=== PATIENT | female | born 1990 | race Caucasian/White ===

== ENCOUNTER 2016-07-12 09:56 | Outpatient (CLI) | payer MEDICAID | END 2016-07-12 09:57 | disposition home or self-care (01) | DX: Z36 Encounter for antenatal screening of mother (principal) ==

== ENCOUNTER 2016-08-11 00:16 | Outpatient (CLI) | payer MEDICAID | END 2016-08-11 03:00 | disposition home or self-care (01) | DX: Z34.03 Encounter for supervision of normal first pregnancy, third trimester (principal) ==

== ENCOUNTER 2016-08-12 04:03 | Inpatient (IN) | payer MEDICAID ==
[2016-08-12] MEDS ORDERED: fentaNYL 100 MCG/2 ML VIAL IVP PRN (05:12)
[2016-08-12] MEDS ORDERED: ONDANSETRON 4 MG/2 ML VIAL IVP PRN (05:12)
[2016-08-12] MEDS: SODIUM CHLORIDE FLUSH 0.9% 10 ML SYRINGE IVP PRN ×2 (06:29→13:57)
[2016-08-12] MEDS: LACTATED RINGERS 1,000 ML IV SCH ×2 (06:29→09:58)
[2016-08-12] MEDS ORDERED: LIDOCAINE 1% 50 ML MDV ONE (12:31)
[2016-08-12] MEDS ORDERED: OXYTOCIN/LACTATED RINGERS 250 ML IV ONE ×2 (12:31→15:05)
[2016-08-12] MEDS ORDERED: HYDROCORTISONE/PRAMOXINE 10 GM PR PRN (15:07)
[2016-08-12] MEDS ORDERED: WITCH HAZEL/GLYCERIN 1 EACH MED..PAD TOP PRN (15:07)
[2016-08-12] MEDS ORDERED: HYDROcod/ACETAM 5/325 MG TABLET PO PRN (15:07)
[2016-08-12] MEDS: IBUPROFEN 800 MG TABLET PO SCH (19:02)
[2016-08-12] MEDS: ACETAMINOPHEN 500 MG TABLET PO SCH (19:03)
[2016-08-13] MEDS: IBUPROFEN 800 MG TABLET PO SCH ×4 (01:07→23:45)
[2016-08-13] MEDS: ACETAMINOPHEN 500 MG TABLET PO SCH ×3 (04:43→17:27)
[2016-08-13] MEDS: DOCUSATE SODIUM 100 MG CAPSULE PO SCH (20:15)
[2016-08-14] MEDS: ACETAMINOPHEN 500 MG TABLET PO SCH ×2 (02:13→10:00)
[2016-08-14] MEDS: IBUPROFEN 800 MG TABLET PO SCH ×2 (06:08→12:33)
[2016-08-14] MEDS: DOCUSATE SODIUM 100 MG CAPSULE PO SCH (10:01)
== END 2016-08-14 14:10 | disposition home or self-care (01) | DRG 775 ==
PROC: 10E0XZZ Delivery of Products of Conception, External Approach (ICD-10-PCS; principal; 2016-08-12)
PROC: 0KQM0ZZ Repair Perineum Muscle, Open Approach (ICD-10-PCS; principal; 2016-08-12)
DX: O42.92 Full-term premature rupture of membranes, unspecified as to length of time between rupture and onset of labor (principal); O70.1 Second degree perineal laceration during delivery; Z3A.40 40 weeks gestation of pregnancy; Z37.0 Single live birth

== ENCOUNTER 2016-09-22 10:20 | Emergency (ER) | payer MEDICAID ==
[2016-09-22] MEDS ORDERED: KETOROLAC 30 MG/ML VIAL ONE (11:00)
[2016-09-22] MEDS ORDERED: KETOROLAC 60 MG/2 ML VIAL IVP STA (11:11)
== END 2016-09-22 13:31 | disposition home or self-care (01) ==
DX: K59.01 Slow transit constipation (principal); O90.89 Other complications of the puerperium, not elsewhere classified

== ENCOUNTER 2017-05-14 11:48 | Outpatient (CLI) | payer MEDICAID ==
--- NOTE | 2017-05-14 22:15 | CT Report ---
EXAM: CT BONY PELVIS WITHOUT CONTRAST EXAM DATE: 05/14/2017 12:07 PM. CLINICAL HISTORY: Coccydynia for 4-5 months. COMPARISON: CT pelvis from 09/22/2016. TECHNIQUE: Thin-section axial images were acquired of the pelvis without contrast. Post-processing: C oronal and sagittal reformats. Other: None. In accordance with CT protocol optimization, one or more of the following dose reduction techniques w ere utilized for this exam: automated exposure control, adjustment of mA and/or KV based on patient s ize, or use of iterative reconstructive technique. FINDINGS: Bones: The coccyx is slightly hypoplastic, and this is unchanged since the previous study. No bone le sions or acute fracture. No bone erosion. The pericoccygeal soft tissues are unremarkable. Sacroiliac Joints: No widening, erosions, or sclerosis. Symphysis Pubis: Mild arthritic changes at the pubic symphysis which are unchanged. Right Hip: The joint space is preserved. No calcified loose bodies. Left Hip: The joint space is preserved. No calcified loose bodies. Musculature: Normal. No fatty atrophy. Pelvic Cavity: The visualized bowel, bladder, and reproductive organs are unremarkable on this noncon trast exam. Other: No lymphadenopathy. No free air or free fluid. The other visualized soft tissues are unremarka ble. IMPRESSION: 1. Slightly hypoplastic coccyx which is unchanged since the previous study. This is probably developm ental in etiology. 2. Otherwise, unremarkable CT of the coccyx. 3. Mild arthritic changes at the pubic symphysis. [facility] Referring Provider Line: [phone] SITE ID: [id number]
== END 2017-05-14 11:49 | disposition home or self-care (01) ==
LOC: DI 11:48
PROVIDERS: ATTEND Nurse Practitioner Family
DX: M53.3 Sacrococcygeal disorders, not elsewhere classified (principal); Q76.49 Other congenital malformations of spine, not associated with scoliosis
CPT/HCPCS: 72192

== ENCOUNTER 2017-05-16 09:14 | Outpatient (CLI) | payer MEDICAID ==
[2017-05-16 19:04] LABS: BILIRUBIN,URINE NEGATIVE (NEGATIVE)
[2017-05-16 19:27] LABS: UR CULTURE IF IND NOT INDICATED; WBC,URINE 0-3 /HPF (0-5)
== END 2017-05-16 09:15 | disposition home or self-care (01) ==
LOC: LAB.F 09:14
PROVIDERS: ATTEND Nurse Practitioner Family
DX: Z00.00 Encounter for general adult medical examination without abnormal findings (principal)
CPT/HCPCS: 81001; 82043; 85018; 87086

== ENCOUNTER 2017-09-19 16:16 | Outpatient (CLI) | payer MEDICAID ==
--- NOTE | 2017-09-20 09:35 | XRAY Report ---
FOUR VIEW MANDIBLE: 09/19/2017 CLINICAL INDICATION: Dislocation. FINDINGS: AP, Analia's, bilateral oblique views of the mandible demonstrate no evidence of fracture or dislocation. The mandibular condyles are normally seated in the temporal fossa bilaterally. Incidental note is made of an impacted right lower molar. IMPRESSION: NO EVIDENCE OF MANDIBULAR FRACTURE OR DISLOCATION AT THIS TIME. TD: 09/20/2017 09:34
== END 2017-09-19 16:17 | disposition home or self-care (01) ==
LOC: DI.S 16:16
PROVIDERS: ATTEND Nurse Practitioner Family
DX: S03.02XA Dislocation of jaw, left side, initial encounter (principal)
CPT/HCPCS: 70110

== ENCOUNTER 2018-01-12 11:24 | Outpatient (CLI) | payer MEDICAID ==
[2018-01-12 17:48] LABS: BILIRUBIN,URINE NEGATIVE (NEGATIVE); GLUCOSE, URINE (UA) NEGATIVE (NEGATIVE); KETONES,URINE (UA) TRACE mg/dL (NEGATIVE); LEUKOCYTE ESTERASE, URINE NEGATIVE (NEGATIVE); NITRITE,URINE NEGATIVE (NEGATIVE); OCCULT BLOOD,URINE NEGATIVE (NEGATIVE); PH,URINE 6.5 PH (5.0-7.5); PROTEIN,URINE NEGATIVE (NEGATIVE); UROBILINOGEN,URINE 0.2 (NORMAL) E.U./dL (NORMAL)
[2018-01-12 17:49] LABS: CLARITY,URINE CLEAR (CLEAR)
[2018-01-12 18:11] LABS: BASOPHILS % (AUTO) 0.2 %; EOSINOPHILS # (AUTO) 0.1 10^3/uL (0.0-0.7); EOSINOPHILS % (AUTO) 1.6 %; HGB - HEMOGLOBIN 13.9 g/dL (12.0-16.0); LYMPHOCYTES # (AUTO) 1.5 10^3/uL (1.5-3.5); LYMPHOCYTES % (AUTO) 18.5 %; MEAN CORPUSCULAR HEMOGLOBIN 30.7 pg (27.0-31.0); MEAN CORPUSCULAR HGB CONC 33.9 g/dL (32.0-36.0); MEAN CORPUSCULAR VOLUME 90.7 fL (81.0-99.0); MEAN PLATELET VOLUME 7.3 fL (7.9-10.8); MONOCYTES # (AUTO) 0.4 10^3/uL (0.0-1.0); NEUTROPHILS % (AUTO) 74.7 %; PLT - PLATELET COUNT 294 10^3/uL (130-450); RED BLOOD COUNT 4.54 10^6/uL (4.20-5.40); RED CELL DISTRIBUTION WIDTH 13.7 % (12.0-15.0)
[2018-01-12 18:27] LABS: BACTERIA,URINE Rare /HPF (None Seen); RBC,URINE 0-5 /HPF (0-5); SQUAMOUS EPITHELIAL CELL,UR FEW Squamous (<= Few)
[2018-01-13 14:11] LABS: HEPATITIS B SURFACE ANTIGEN NON-REACTIVE (NON-REACTIVE); HEPATITIS C ANTIBODY NON-REACTIVE (NON-REACTIVE)
[2018-01-13 14:28] LABS: HIV AG/AB 4TH GEN NON-REACTIVE (NON-REACTIVE)
== END 2018-01-12 11:25 | disposition home or self-care (01) ==
LOC: LAB.F 11:24
PROVIDERS: ATTEND Nurse Practitioner Obstetrics & Gynecology
DX: Z36.9 Encounter for antenatal screening, unspecified (principal); Z11.51 Encounter for screening for human papillomavirus (HPV)
CPT/HCPCS: 36415; 81001; 81003; 81599; 85025; 86762; 86803; 86850; 86900; 86901; 87086; 87340; 87389

== ENCOUNTER 2018-03-16 12:31 | Outpatient (CLI) | payer MEDICAID ==
--- NOTE | 2018-03-16 16:19 | Ultrasound Report ---
Reason: ENCTR FOR SCREENING, UNSPECIFIED Procedure Date: 03/16/2018 Accession Number: [id number] / [id number] Procedure: US - OB Detailed Eval CPT Code: FULL RESULT: EXAM: COMPLETE OBSTETRICAL ULTRASOUND EXAM DATE: 03/16/2018 02:16 PM. CLINICAL HISTORY: anatomic survey. COMPARISON: OB DETAILED EVAL 03/24/2016 7:50 AM. TECHNIQUE: Real-time sonographic evaluation of the fetus performed by the executive consultant. Multiple sales representative womens health static images were saved for review. DATING: Established EGA 21 weeks and 0 days with MICHELLE 07/27/2018 based on last menstrual period which is the established gestational age as provided by the referring physician. EGA 21 weeks 4 days with MICHELLE 07/23/2018 based on the current ultrasound. GENERAL EVALUATION Mccall . Cardiac activity: 148 bpm. movement: Visualized. Presentation: Variable Placenta: Posterior position. No evidence for previa. Umbilical cord: 3 vessel cord. Central placental cord origin. Amniotic fluid: Subjectively normal. MVP 4.2 cm. BIOMETRY Bi-Parietal Diameter (BPD): 5.4 cm, 22 weeks 2 days Head Circumference (HC): 20 cm, 22 weeks 1 day Abdominal Circumference (AC): 16.7 cm, 21 weeks 5 days Femur Length (FL): 3.4 cm, 20 weeks 4 days Estimated Weight: 420 g which is normal for the established gestational age. ANATOMY The kidneys are not adequately visualized. The intracranial structures, profile, face/nose/lips, spine, 4 chamber heart and outflow tracts, stomach, abdominal wall and cord insertion, diaphragm, bladder, and extremities were visualized and demonstrate no abnormality. MATERNAL STRUCTURES Uterus: Unremarkable. Cervix: Long and closed. Transabdominal length 5.6 cm. The adnexa and ovaries were not identified. Free fluid: None. IMPRESSION: 1. Mccall live intrauterine with gestational age 21 weeks and 0 days based on physician assigned established due date based on the patient's last menstrual period. 2. Estimated weight is within expected limits for assigned dating. 3. The exception of inadequate imaging of both kidneys, normal anatomic survey. No anatomic abnormalities are detected at this time. The patient should return to the department for additional imaging of the kidneys and renal pelvises at no charge to the patient. [facility]
== END 2018-03-16 12:32 | disposition home or self-care (01) ==
LOC: DI 12:31
PROVIDERS: ATTEND Nurse Practitioner Obstetrics & Gynecology
DX: Z36.9 Encounter for antenatal screening, unspecified (principal)
CPT/HCPCS: 76811

== ENCOUNTER 2018-04-24 12:01 | Outpatient (CLI) | payer MEDICAID ==
[2018-04-24 13:15] LABS: HGB - HEMOGLOBIN 13.4 g/dL (12.0-16.0); MEAN CORPUSCULAR HEMOGLOBIN 31.7 pg (27.0-31.0); MEAN CORPUSCULAR HGB CONC 34.9 g/dL (32.0-36.0); MEAN CORPUSCULAR VOLUME 90.9 fL (81.0-99.0); MEAN PLATELET VOLUME 6.4 fL (7.9-10.8); RED BLOOD COUNT 4.22 10^6/uL (4.20-5.40); RED CELL DISTRIBUTION WIDTH 13.5 % (12.0-15.0); WHITE BLOOD COUNT 10.7 x10^3/uL (4.8-10.8)
== END 2018-04-24 12:02 | disposition home or self-care (01) ==
LOC: LAB 12:01
PROVIDERS: ATTEND Nurse Practitioner Obstetrics & Gynecology
DX: Z36.9 Encounter for antenatal screening, unspecified (principal)
CPT/HCPCS: 36415; 82950; 85027; 86850; 87086

== ENCOUNTER 2018-06-01 12:58 | Outpatient (CLI) | payer MEDICAID ==
--- NOTE | 2018-06-02 10:31 | Ultrasound Report ---
Reason: ENCOUNTER FOR OTHER SPECIFIED SCREENING Procedure Date: 06/01/2018 Accession Number: [id number] / [id number] Procedure: US - OB F/U or Repeat CPT Code: FULL RESULT: EXAM: OBSTETRICAL ULTRASOUND, LIMITED, FOLLOW-UP EXAM DATE: 06/01/2018 01:24 PM. CLINICAL HISTORY: Completion of anatomic survey. Previously insufficient visualization of kidneys. COMPARISON: OB detailed evaluation 03/16/2018. TECHNIQUE: Real-time sonographic evaluation of the fetus performed by the preform plate maker. Multiple pest control service representative static images were saved for review. DATING: Established EGA 32 weeks 0 days with MICHELLE 07/27/2018 based on obstetric provider information. GENERAL EVALUATION M[place]all . Cardiac activity: 135 bpm. movement: Visualized. Presentation: Cephalic. Placenta: Posterior position. No evidence for previa. Amniotic fluid: VIVIAN 12.6, MVP 4.7 cm. ANATOMY The bilateral kidneys are within normal limits. MATERNAL STRUCTURES Visualized portions are within normal limits. IMPRESSION: 1. Mccall live intrauterine with gestational age 32 weeks 0 days based on obstetric provider information. 2. Normal kidneys. This completes a normal anatomic survey. [facility]
== END 2018-06-01 12:59 | disposition home or self-care (01) ==
LOC: DI 12:58
PROVIDERS: ATTEND Nurse Practitioner Obstetrics & Gynecology
DX: Z36.89 Encounter for other specified antenatal screening (principal); Z3A.32 32 weeks gestation of pregnancy
CPT/HCPCS: 76816

== ENCOUNTER 2018-06-30 08:00 | Outpatient (CLI) | payer MEDICAID | END 2018-06-30 23:59 | disposition home or self-care (01) | LOC: LAB.R 08:00 | PROVIDERS: ATTEND Nurse Practitioner Obstetrics & Gynecology | DX: Z36.85 Encounter for antenatal screening for Streptococcus B (principal) | CPT/HCPCS: 87797 ==

== ENCOUNTER 2018-07-13 01:06 | Outpatient (CLI) | payer MEDICAID ==
[2018-07-13 02:36] LABS: BILIRUBIN,URINE NEGATIVE (NEGATIVE); GLUCOSE, URINE (UA) NEGATIVE (NEGATIVE); KETONES,URINE (UA) NEGATIVE (NEGATIVE); LEUKOCYTE ESTERASE, URINE NEGATIVE (NEGATIVE); NITRITE,URINE NEGATIVE (NEGATIVE); OCCULT BLOOD,URINE NEGATIVE (NEGATIVE); PH,URINE 7.5 PH (5.0-7.5); PROTEIN,URINE NEGATIVE (NEGATIVE); UROBILINOGEN,URINE 0.2 (NORMAL) E.U./dL (NORMAL)
[2018-07-13 02:38] LABS: CLARITY,URINE CLEAR (CLEAR)
[2018-07-13 02:41] LABS: BACTERIA,URINE Rare /HPF (None Seen); RBC,URINE 0-5 /HPF (0-5); SQUAMOUS EPITHELIAL CELL,UR FEW Squamous (<= Few)
--- NOTE | 2018-07-13 03:36 | Ultrasound Report ---
Reason: low heart rate Procedure Date: 07/13/2018 Accession Number: [id number] / [id number] Procedure: US - OB Biophysical Profile CPT Code: FULL RESULT: EXAM: BIOPHYSICAL PROFILE EXAM DATE: 07/13/2018 03:22 AM. CLINICAL HISTORY: Low heart rate. COMPARISON: 06/01/2018. TECHNIQUE: Real-time sonographic evaluation of the fetus performed by the tariff inspector. Multiple admissions representative static images were saved for review. DATING: Established EGA 38 weeks 0 days with MICHELLE 07/27/2018. GENERAL EVALUATION M[place]all . Cardiac activity: 120 bpm. movement: Visualized. Presentation: Cephalic. Placenta: Posterior left position. No evidence for previa or abruption. Amniotic fluid: Normal. VIVIAN 14.6 cm. MVP 5.9 cm. BIOPHYSICAL PROFILE Breathing = 2 Movement = 2 Tone = 2 Amniotic Fluid = 2 Total 01/11 IMPRESSION: 1. Mccall live intrauterine with gestational age 38 weeks 0 days based on established MICHELLE. 2. Biophysical profile score 8 of 8. CHAPIN
[2018-07-13 04:29] VITALS: BP 108/70
== END 2018-07-13 04:20 | disposition home or self-care (01) ==
LOC: WFO 01:06 → FBP 01:07 → WFO 04:20
PROVIDERS: ATTEND Obstetrics & Gynecology
DX: O47.1 False labor at or after 37 completed weeks of gestation (principal); Z3A.38 38 weeks gestation of pregnancy
CPT/HCPCS: 76819; 81001; 87086; 99214

== ENCOUNTER 2018-07-24 21:02 | Inpatient (IN) | payer MEDICAID ==
[2018-07-24] MEDS ORDERED: PENICILLIN G POTASSIUM 5,000,000 UNIT in SODIUM CHLORIDE 0.9% MINIBAG 100 ML IV SCH (21:30)
[2018-07-24] MEDS ORDERED: LIDOCAINE-MPF 1% 30 ML VIAL ONE (21:31)
[2018-07-24] MEDS ORDERED: miSOPROStol 200 MCG TABLET ONE (21:32)
[2018-07-24] MEDS ORDERED: OXYTOCIN/SODIUM CHLORIDE 500 ML IV ONE (21:32)
[2018-07-24 21:52] LABS: BASOPHILS % (AUTO) 0.2 %; EOSINOPHILS # (AUTO) 0.2 10^3/uL (0.0-0.7); HGB - HEMOGLOBIN 13.5 g/dL (12.0-16.0); LYMPHOCYTES # (AUTO) 1.8 10^3/uL (1.5-3.5); LYMPHOCYTES % (AUTO) 16.8 %; MEAN CORPUSCULAR HEMOGLOBIN 30.8 pg (27.0-31.0); MEAN CORPUSCULAR HGB CONC 33.7 g/dL (32.0-36.0); MEAN CORPUSCULAR VOLUME 91.5 fL (81.0-99.0); MEAN PLATELET VOLUME 6.6 fL (7.9-10.8); MONOCYTES # (AUTO) 0.8 10^3/uL (0.0-1.0); MONOCYTES % (AUTO) 7.2 %; NEUTROPHILS % (AUTO) 73.8 %; PLT - PLATELET COUNT 353 10^3/uL (130-450); RED BLOOD COUNT 4.37 10^6/uL (4.20-5.40); RED CELL DISTRIBUTION WIDTH 13.6 % (12.0-15.0); WHITE BLOOD COUNT 10.8 x10^3/uL (4.8-10.8)
[2018-07-24] MEDS ORDERED: LACTATED RINGERS 1,000 ML IV SCH (22:00)
--- NOTE | 2018-07-24 22:34 | HISTORY & PHYSICAL EXAMINATION ---
Admit History - Visit Reason Visit Reason: Contractions - : 2 Parity: 1 Premature: 0 Ectopic: 0 : 0 Care: positive: [facility] Risk/History: positive: None Complications This : positive: None Smoking Status: Never smoker - Mother's Labs Mother's Blood Type: positive: A Mother's RH: positive: Positive GBS: positive: Group B Strep Positive Rubella Status: positive: Immune Meds/Allgy - Home Medications Home Medications: Ambulatory Orders Medication Instructions Recorded Confirmed No Known Home Medications 09/22/16 09/22/16 - Allergies Allergies/Adverse Reactions: Allergies Allergy/AdvReac Type Severity Reaction Status Date / Time No Known Drug Allergies Allergy Verified 09/22/16 10:27 Review of Systems - Constitutional Constitutional: denies: Fatigue, Fever, Chills, Malaise - Eyes Eyes: denies: Blurred vision, Spots in vision, Dipolpia - Cardiovascular Cariovascular: denies: Irregular heart rate, Palpitations, Chest pain, Edema - Respiratory Respiratory: denies: Cough, Sputum production, Wheezing - Gastrointestinal Gastrointestinal: denies: Abdominal pain, Constipation, Diarrhea, Change in bowel habits, Nausea, Vomiting - Genitourinary Genitourinary: denies: Dysuria, Frequency, Urgency, Hematuria - Integumentary Integumentary: denies: Rash, Pruritis - Psychiatric Psychiatric: denies: Depression, Anxiety Physical - Abdominal Exam Vital Signs: BP 108/65, HR 73, RR 20 Contraction Frequency (min/apart): 5-6 Contraction Intensity: positive: Mild to moderate Uterine Resting Tone: positive: Soft - Monitoring Heart Rate Baseline: 120 Strip Review: positive: Category I - Presentation Presentation: positive: Vertex - Vaginal Exam Membranes: positive: Membranes intact Dilation (in cm): 4 Effacement (%): 90 Station: positive: 0 Cervical Position: positive: Midposition - Speculum Exam Speculum Exam Performed: positive: No Plan for Labor - Plan For Labor I expect patient to be DC'd or transferred within 96 hours.: Yes Plan for Labor: HPI: 27yo @ 39.4wks gestation by LMP c/w 8 wk ultrasound, presented on 07/24/2018 @ 2100 with c/o uterine contractions for the past 3 days which have been persistently uncomfortable. She denies VB or Lof. Reports +FM. Denies headache, visual disturbances, RUQ or epigastric pain. Reviewed risks vs benefits of labor augmentation with AROM and pt elects to have her labor augmented. She was admitted for active management with AROM. She has been a patient of [facility] through the duration of her . Her has been complicated only by her GBS positive status for which she will receive penicillin for prophylaxis per protocol. Dating criteria: LMP 10/20/2017 First ultrasound 12/20/2017 @ 8wks - agrees OB History: G1: 08/12/2016, 40wks, , unmedicated, 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 Yobany, daughter Deidra Family Hx: lung cancer - maternal grandfather; Depression - brother; prostate cancer - maternal uncle; skin cancer - maternal grandmother labs: A pos, antibody neg Hgb: 13.5; Hct 40.0; PLT 353 Hep B neg GC/CT neg HIV neg Hep C neg RPR non-reactive 28wk labs: 1 hour GTT 128 Hgb 13.4; Hct 38.4 Antibody neg GBS POSITIVE Ultrasounds: -FAS WNL with exception of poor visualization of both kidneys. Size c/w dating. Posterior placenta, no previa. 3VC. -Completion WNL - kidneys visualized and are WNL. Physical Exam: normochephalic, atraumatic EOM intact, PERRLA Mood is good Heart RRR w/o M/G/R Lungs CTAB Abdomen gravid, soft, and nontender Contractions palpate mild-moderate every 5-6 minutes lasting 50-70 seconds with soft resting tone FHR baseline 120s, moderate variability, + accels, no decels. Bilateral LE's no edema. Assessment: 27yo @ 39.4wks gestation by L=8wk U/S AROM moderate amount of clear fluid GBS positive-Initial loading dose currently being administered. FHT Category I Plan: Penicillin for GBS prophylaxis. Expectant management Continuous monitoring. N20 per maternal request. Anticipate spontaneous vaginal delivery. Reevaluate in 6 hours or sooner PRN.
[2018-07-25] MEDS ORDERED: SODIUM CHLORIDE FLUSH 0.9% 10 ML SYRINGE IVP SCH (01:00)
[2018-07-25] MEDS ORDERED: OXYTOCIN/SODIUM CHLORIDE 500 ML IV PRN (01:38)
[2018-07-25] MEDS ORDERED: LIDOCAINE 1% 50 ML MDV SUBQ SCH (01:52)
[2018-07-25] MEDS ORDERED: PENICILLIN G POTASSIUM 2,500,000 UNIT in SODIUM CHLORIDE 0.9% 100ML 100 ML IV SCH (02:00)
[2018-07-25] MEDS: SODIUM CHLORIDE FLUSH 0.9% 10 ML SYRINGE IVP PRN ×2 (02:09→03:06)
[2018-07-25] MEDS ORDERED: HYDROCORTISONE 1% CREAM 28 GM TUBE PR PRN (02:26)
--- NOTE | 2018-07-25 02:46 | DELIVERY NOTE ---
Delivery Note - Labor Labor: positive: Augmented by ARM - Infant Delivery Method Delivery Method: positive: Spontaneous vaginal delivery - Presentation Presentation: positive: Vertex, BENITO - right occiput anterior - Nuchal Cord Nuchal Cord: positive: Present, Reduced - Amniotic Fluid Description Amniotic Fluid Description: positive: Clear - Episiotomy Type Episiotomy Type: positive: None - Laceration Laceration: positive: 1st degree - Suture Suture Type: positive: Vicryl Suture Size: positive: 3-0 - Delivery Outcome Delivery Outcome: positive: Livebirth - [place]: positive: Placed in direct skin contact with mother, Stimulated, Warmed, [place] used sex: positive: Male - Cord Cord: positive: 3 vessels - Placenta Placenta: positive: Intact, Spontaneous - Estimated Blood Loss Estimated Blood Loss (in cc): 300 - Post Delivery Events Post Delivery Events: positive: No post delivery events - Delivery Comments (Free Text/Narrative) Delivery Comments (Free Text/Narrative): Labor: This 27yo @ 39.5wks gestation presented on 07/24/2018 at 2100 with c/o persistent uterine contractions x 3 days and absence of cervical change. Cervix was 4/90/0, vertex, midposition, and soft. FHR pattern demonstrated Category I tracing throughout. AROM occurred at 0952 and was noted to be a moderate amount of clear fluid. Penicillin administered via IV for GBS prophylaxis. Precipitous labor course with rapid progression from early labor to complete dilation with spontaneous urge to push at 0130 on 07/25/2018 for a total first stage of labor lasting 3 hours and 8 minutes. Patient spontaneously delivered a viable male infant at 0138 on 07/25/2018. Tight nuchal cord x 1 reduced. 's were 8 and 9 at 1 and 5 minutes respectively. Total second stage lasting 8 minutes. The was placed on maternal abdomen, stimulated, dried, and placed skin to skin. Pitocin administered via IV for hemostasis. The umbilical cord was allowed to stop pulsating at which time it was doubly clamped and cut by CNM. Cord blood was obtained. Placenta delivered spontaneously and intact at 0142 for a total third stage duration of 4 minutes. 3VC noted. EBL 300mL. Uterine fundus firm and there is no excessive bleeding. The perineum, vagina, and cervix were inspected and found to have 1st degree laceration. 1% lidocaine was infiltration into affected area for local anesthesia. Laceration repaired using 3-[address]-1 needle in standard fashion under sterile conditions. Vaginal examination following repair was completed and tissue were well approximated and hemostatic. initiated. Family bonding well. Both mother and baby were left in stable condition.
[2018-07-25] MEDS: IBUPROFEN 800 MG TABLET PO SCH ×4 (02:58→20:29)
[2018-07-25] MEDS: WITCH HAZEL/GLYCERIN 1 EACH MED..PAD TOP PRN (02:59)
[2018-07-25] MEDS: ACETAMINOPHEN 500 MG TABLET PO SCH ×3 (02:59→22:02)
[2018-07-25] MEDS: DOCUSATE SODIUM 100 MG CAPSULE PO SCH (09:53)
[2018-07-26] MEDS: DOCUSATE SODIUM 100 MG CAPSULE PO SCH ×2 (00:16→09:30)
[2018-07-26] MEDS: IBUPROFEN 800 MG TABLET PO SCH ×2 (04:05→09:43)
--- NOTE | 2018-07-26 08:16 | Discharge Plan ---
Discharge Plan Disposition: 01 Home, Self Care Condition: Good Diet: Regular Activity Restrictions: No Restrictions Shower Restrictions: No Driving Restrictions: No Weight Bearing: Full Weight No Smoking: If you smoke, Please STOP! Call for help. Follow-up with: Courtney Saucedo CNM, ARNP [Provider Admit Priv/Credential] -
--- NOTE | 2018-07-26 08:22 | PROVIDER PROGRESS NOTE ---
Subjective - Subjective Subjective: FINAL PROGRESS NOTE: S: Bonding well with baby. without difficulty. Bleeding decreased - did pass one golf ball sized clot last night but overall bleeding has decreased. Pain well controlled with oral medications. Strongly desires to go home today. O: Heart RRR w/o M/G/R, lungs CTAB, bilateral LE's no edmea, abdomen soft and nontender with fundus firm at U-2. Perineum intact and repair without edema. Mood is good. BP 106/69, HR 86, RR 16 T 36.4 A: 27yo -->P2 PPD#1 s/p TSVD of viable male P: Discharge home today on PPD#1. Reviewed self care and warning s/sx. Advised continuation of PNV while . Advised ibuprofen and tylenol OTC for pain management. Does not intend to use contractions. Denies concerns or complaints. Will f/u in 1 week for support visit and/or in 3 weeks for routine pp visit. Objective - Vital Signs/Intake & Output Vital Signs: Vital Signs x48h Temp Pulse Resp BP Pulse Ox 07/26/18 00:21 36.4 C L 86 16 106/69 97 Intake & Output: Intake & Output 07/23/18 07/24/18 07/25/18 07/26/18 23:59 23:59 23:59 23:59 Intake Total 115 1300 Output Total 200 Balance 115 1100 - Lab Results Fish Bones: 07/24/18 21:40
[2018-07-26 08:30] VITALS: BP 110/68
[2018-07-26] MEDS: ACETAMINOPHEN 500 MG TABLET PO SCH (09:30)
--- NOTE | 2018-07-26 09:39 | DISCHARGE SUMMARY ---
Physician: UYEN Washington DATE OF ADMISSION: 07/24/2018 DATE OF DISCHARGE: 07/26/2018 DIAGNOSES AT ADMISSION 1. A 27-year-old G2, P1-0-0-1, at 39 and 5 weeks' gestation, presented on 07/24/2018. 2. Early labor. 3. Group B streptococcus positive. 4. Planned augmentation of labor with artificial rupture of membranes. DIAGNOSES ON DISCHARGE 1. A 27-year-old G2, P2-0-0-1, status post spontaneous vaginal delivery on 07/25/2018. 2. Normal recovery. HISTORY OF PRESENT ILLNESS: She is a patient of [facility] who presented on 019 with complaints of contractions. Her cervix was noted to be 4 cm dilated, 90% effaced at a 0 sta tion in vertex position. AROM occurred at 0952 hours, and was noted to be a moderate amount of clear fluid. Penicillin administered via IV for GBS prophylaxis. Precipitous labor course with rapid prog ression from early labor to complete dilation with spontaneous urge to push, for a total first stage duration of labor lasting 3 hours and 38 minutes. She spontaneously delivered a viable male infant a t 0138 hours on 07/25/2018. Apgars were 8 and 9 at one and five minutes respectively. Perineum inta ct. Estimated blood loss 300 mL. She has been doing well in her course. She is ambulating and tolerating a regular diet. She is urinating without difficulty, and her lochia is normal. Her pain is well controlled with oral medications. She will be discharged home today on day #2 with instructions to continue i buprofen and stool softener [id number]. She has also been advised to continue her vit amins while . She intends to followup with myself at [facility] in one week for support visit, and in three weeks for routine visit. She has been giv en precautions to call if she has any worsening fevers, chills, abdominal pain, increased bleeding or foul-smelling vaginal lochia. TD: 07/26/2018 08:42
[2018-07-26] MEDS: WITCH HAZEL/GLYCERIN 1 EACH MED..PAD TOP PRN (09:44)
--- NOTE | 2018-07-26 13:03 | Labor Flowsheet ---
Labor Flowsheet Datetime Report Generated by CPN: 07/26/2018 13:03 Datetime: 07/25/2018 08:01 VITAL SIGNS NBP Sys/Lauren/Mean (mmHg): 105 : 67 : 75 Pulse: 91 LaborFlag: Labor Datetime: 07/25/2018 03:49 SpO2 (%): 99 Datetime: 07/25/2018 03:33 Membranes Ruptured Date/Time: 07/24/2018 21:52 Datetime: 07/25/2018 01:38 UTERINE ACTIVITY Monitor Mode: External Frequency (min): 2 Quality: Strong Pattern: Normal: <= 5 Contractions in 10 Minutes Resting Tone (Palpate): Relaxed Contraction Comments: Pushing contractions ASSESSMENT A Monitor Mode: Telemetry FHR Baseline Rate : 115 Variability: Moderate 6-25 bpm Comments: Spotty FHR due to pushing; possible variable at 0132 PATIENT CARE Oxygen Method: Room Air Datetime: 07/25/2018 01:30 Duration (sec): 70-90 Accelerations: 15X15 Decelerations: None Category: Category I Exam by: A Lewis, CNM, CONSULTING HR PROFESSIONAL Vaginal Exam Comments: Complete STAGE 2 Pushing: Urge to Push Pushing Position: Pushing with Contractions; Pushing Lithotomy Pushing Progress: Descent with Pushing Datetime: 07/25/2018 01:22 Patient Position/Activity: Hands-Knees Datetime: 07/25/2018 01:05 COMMUNICATION Communication: Call/Page Placed to Provider Provider Notified (Name): Yenny Saucedo, CNM, CONSULTING HR PROFESSIONAL Communication Comments: Patient's cervix is unchanged, but provider made aware that patient states that she felt like her contractions felt like how they were when she was 6cm during her previous labo r, patient went from 6 to 10cm in an hour and a half per patient and provider; provider coming to see patient Datetime: 07/25/2018 00:48 VAGINAL EXAM Dilatation (cm): 4.0 Effacement (%): 85 Station: 0 Vaginal Bleeding: None Cervix, Consistency: Soft Cervix, Position: Midposition Datetime: 07/25/2018 00:32 PAIN Pain Scale: 7 Pain Presence: Intermittent Pain Type: Cramping Pain Location: Abdomen Pain Coping: Breathing Through Contractions Comfort Measures: Breathing/Relaxation; Family Support; Aromatherapy Datetime: 07/25/2018 00:31 Respirations: 18 Temperature (C): 36.8 Datetime: 07/25/2018 00:18 Hygiene: Peripad Changed; Gown Changed I/O Interventions: Up to BR Datetime: 07/25/2018 00:12 Patient Care Comments: Out of the [facility]
== END 2018-07-26 12:50 | disposition home or self-care (01) | DRG 807 ==
LOC: WFO 21:02 → FBP 21:03 → WFO 22:21 → FBP 07-25 10:50
PROVIDERS: ADMIT Nurse Practitioner Obstetrics & Gynecology; ATTEND Nurse Practitioner Obstetrics & Gynecology
PROC: 10E0XZZ Delivery of Products of Conception, External Approach (ICD-10-PCS; principal; 2018-07-25)
PROC: 10907ZC Drainage of Amniotic Fluid, Therapeutic from Products of Conception, Via Natural or Artificial Opening (ICD-10-PCS; 2018-07-25)
PROC: 0HQ9XZZ Repair Perineum Skin, External Approach (ICD-10-PCS; 2018-07-25)
DX: O70.0 First degree perineal laceration during delivery (principal); Z37.0 Single live birth; Z3A.39 39 weeks gestation of pregnancy; O99.824 Streptococcus B carrier state complicating childbirth; O69.81X0 Labor and delivery complicated by cord around neck, without compression, not applicable or unspecified
CPT/HCPCS: 85025

== ENCOUNTER 2019-04-30 15:11 | Outpatient (CLI) | payer MEDICAID ==
[2019-04-30 16:03] LABS: BASOPHILS % (AUTO) 0.4 %; EOSINOPHILS # (AUTO) 0.3 10^3/uL (0.0-0.7); HGB - HEMOGLOBIN 14.1 g/dL (12.0-16.0); LYMPHOCYTES # (AUTO) 1.7 10^3/uL (1.5-3.5); LYMPHOCYTES % (AUTO) 34.8 %; MEAN CORPUSCULAR HEMOGLOBIN 30.7 pg (27.0-31.0); MEAN CORPUSCULAR VOLUME 92.8 fL (81.0-99.0); MEAN PLATELET VOLUME 9.2 fL (7.9-10.8); MONOCYTES # (AUTO) 0.4 10^3/uL (0.0-1.0); MONOCYTES % (AUTO) 7.7 %; NEUTROPHILS # (AUTO) 2.4 10^3/uL (1.5-6.6); NEUTROPHILS % (AUTO) 50.9 %; PLT - PLATELET COUNT 241 10^3/uL (130-450); RED CELL DISTRIBUTION WIDTH 13.2 % (12.0-15.0); WHITE BLOOD COUNT 4.8 x10^3/uL (4.8-10.8)
[2019-04-30 16:25] LABS: ALBUMIN 4.5 g/dL (3.2-5.5); BILIRUBIN,TOTAL 0.5 mg/dL (0.2-1.0); CALCIUM 9.2 mg/dL (8.5-10.3); CREATININE 0.6 mg/dL (0.4-1.0); CRP - C-REACTIVE PROTEIN 1.1 mg/dL (0-1.0); TOTAL PROTEIN 6.8 g/dL (6.7-8.2)
== END 2019-04-30 15:12 | disposition home or self-care (01) ==
LOC: LAB 15:11
PROVIDERS: ATTEND Nurse Practitioner
DX: R19.4 Change in bowel habit (principal); R10.9 Unspecified abdominal pain; G89.29 Other chronic pain
CPT/HCPCS: 36415; 80053; 83516; 84443; 85025; 85651; 86140

== ENCOUNTER 2019-05-01 08:00 | Outpatient (CLI) | payer MEDICAID ==
[2019-05-01 19:29] LABS: H. PYLORIS ANTIGEN STL NEGATIVE (Negative)
== END 2019-05-01 23:59 | disposition home or self-care (01) ==
LOC: LAB.R 08:00
PROVIDERS: ATTEND Nurse Practitioner
DX: R19.4 Change in bowel habit (principal); G89.29 Other chronic pain; R10.9 Unspecified abdominal pain
CPT/HCPCS: 81599; 82274; 83630; 87045; 87046; 87177; 87209; 87329; 87338; 87493

== ENCOUNTER 2019-09-28 07:00 | Outpatient (CLI) | payer MEDICAID ==
[2019-09-28 12:53] LABS: HGB - HEMOGLOBIN 14.1 g/dL (12.0-16.0); MEAN CORPUSCULAR HEMOGLOBIN 29.4 pg (27.0-31.0); MEAN CORPUSCULAR HGB CONC 31.6 g/dL (32.0-36.0); MEAN CORPUSCULAR VOLUME 92.9 fL (81.0-99.0); MEAN PLATELET VOLUME 9.4 fL (7.9-10.8); RED BLOOD COUNT 4.8 10^6/uL (4.20-5.40); RED CELL DISTRIBUTION WIDTH 12.9 % (12.0-15.0); WHITE BLOOD COUNT 4.1 x10^3/uL (4.8-10.8)
[2019-09-28 13:29] LABS: THYROID STIMULATING HORMONE 2.42 uIU/mL (0.34-5.60)
[2019-09-28 13:30] LABS: FREE T3 3.03 pg/mL (2.5-3.9)
[2019-09-28 13:31] LABS: FREE T4 (FREE THYROXINE) 0.66 ng/dL (0.58-1.64)
[2019-09-28 15:04] LABS: RHEUMATOID FACTOR NEGATIVE (Negative)
[2019-10-01 13:00] LABS: ANA SCREEN NEGATIVE (NEGATIVE)
== END 2019-09-28 23:59 | disposition home or self-care (01) ==
LOC: LAB.WCP 07:00
PROVIDERS: ATTEND Nurse Practitioner
DX: R63.4 Abnormal weight loss (principal); M35.7 Hypermobility syndrome; G89.29 Other chronic pain; R10.9 Unspecified abdominal pain
CPT/HCPCS: 36415; 84439; 84443; 84481; 85027; 85651; 86038; 86140; 86200; 86430

== ENCOUNTER 2019-12-14 12:21 | Outpatient (CLI) | payer MEDICAID ==
--- NOTE | 2019-12-18 11:09 | Ultrasound Report ---
PROCEDURE: Duplex Upr Ext Arterial Bilat INDICATIONS: THORACIC OUTLET SYNDROME TECHNIQUE: Color and pulse Doppler interrogation was performed of both upper extremity arterial systems, with im age documentation. COMPARISON: None. FINDINGS: Right upper extremity: Neutral position: Subclavian artery (proximal): 107 cm/sec Subclavian artery (distal): 87 cm/sec. Symptomatic position: Subclavian artery (proximal): 248 cm/sec. Subclavian artery (distal): 250 cm/sec. During bicep curl: Subclavian artery (proximal): 106 cm/sec, with biphasic flow. Subclavian artery (distal): 100 cm/sec, with triphasic flow. Downward pressure: Subclavian artery (proximal): 72 cm/sec, with triphasic flow. Subclavian artery (distal): 59 cm/sec, with triphasic flow. Left upper extremity: Neutral position: Subclavian artery (proximal): 91 cm/sec, with triphasic flow. Subclavian artery (distal): 51 cm/sec, with triphasic flow. Symptomatic position: Subclavian artery (proximal): 51 cm/sec, with biphasic flow. Subclavian artery (distal): 32 cm/sec, with monophasic flow. There is also delayed upstroke consist ent with tardus parvus waveform. During biceps curl: Subclavian artery (proximal): 107 cm/sec, with triphasic flow. Subclavian artery (distal): 75 cm/sec, with triphasic flow. Downward pressure: Subclavian artery (proximal): 52 cm/sec, with biphasic flow. Subclavian artery (distal): 68 cm/sec, with triphasic flow. IMPRESSION: 1. Delayed upstroke, monophasic waveforms, and decreased velocity within the left subclavian artery i n the symptomatic position suspicious for left thoracic outlet syndrome. 2. Elevated velocities in the symptomatic position within the right subclavian artery which may repre sent a more proximal stenosis and right-sided thoracic outlet syndrome. Reviewed by: Elizabeth Kimble MD on 12/18/2019 11:08 AM PDT Approved by: Elizabeth Kimble MD on 12/18/2019 11:08 AM PDT Station ID: [id number]
== END 2019-12-14 12:22 | disposition home or self-care (01) ==
LOC: DI 12:21
PROVIDERS: ATTEND Nurse Practitioner
DX: I77.89 Other specified disorders of arteries and arterioles (principal)
CPT/HCPCS: 93930

== ENCOUNTER 2020-01-30 14:17 | Outpatient (CLI) | payer MEDICAID ==
--- NOTE | 2020-01-30 15:42 | Ultrasound Report ---
PROCEDURE: OB First Trimester INDICATIONS: POSITIVE OUTSIDE/PRIOR DATING DATA: Last menstrual period (LMP): 11/22/2019. LMP-based estimated date of delivery (MICHELLE): 08/28/2020. First dating scan (date and location): 01/30/2020. Estimated date of delivery (MICHELLE) from first dating scan: 08/29/2020. TECHNIQUE: Real-time scanning was performed of the fetus and maternal pelvic organs, with image documentation. COMPARISON: None. FINDINGS: Embryo: Single living intrauterine fetus is present with a heart rate measured 1 71 bpm. [place] -rump length measures 2.9 cm, 9 weeks 5 days. Incidental placental vascular lakes. Measurement variability in dating: +/- 4 weeks by LMP, +/- 7 days by mean sac diameter (use before 6 weeks gestation if crown-rump length not able to be measured), +/- 5 days by crown-rump length (6-12 weeks gestation). Maternal organs: Ovaries unremarkable except for a presumed left-sided corpus luteum.. Limited imag es through the kidneys demonstrate no hydronephrosis. IMPRESSION: Single living intrauterine fetus with a gestational age measuring 9 weeks 5 days by today's ultrasoun d measurements, which corresponds to an MICHELLE of 08/29/2020. Reviewed by: Arnoldo Rockwell MD on 01/30/2020 3:41 PM PDT Approved by: Arnoldo Rockwell MD on 01/30/2020 3:41 PM PDT Station ID: [id number]
== END 2020-01-30 14:18 | disposition home or self-care (01) ==
LOC: DI 14:17
PROVIDERS: ATTEND Advanced Practice Midwife
DX: Z32.01 Encounter for pregnancy test, result positive (principal)
CPT/HCPCS: 76801

== ENCOUNTER 2020-02-06 08:00 | Outpatient (CLI) | payer MEDICAID ==
[2020-02-06 10:29] LABS: BILIRUBIN,URINE NEGATIVE (NEGATIVE); GLUCOSE, URINE (UA) NEGATIVE (NEGATIVE); KETONES,URINE (UA) NEGATIVE (NEGATIVE); LEUKOCYTE ESTERASE, URINE NEGATIVE (NEGATIVE); NITRITE,URINE NEGATIVE (NEGATIVE); OCCULT BLOOD,URINE NEGATIVE (NEGATIVE); PH,URINE 8.5 PH (5.0-7.5); PROTEIN,URINE NEGATIVE (NEGATIVE); UROBILINOGEN,URINE 0.2 (NORMAL) E.U./dL (NORMAL)
[2020-02-06 10:30] LABS: CLARITY,URINE CLEAR (CLEAR)
[2020-02-06 10:42] LABS: BACTERIA,URINE Few /HPF (None Seen); RBC,URINE 0-5 /HPF (0-5); SQUAMOUS EPITHELIAL CELL,UR MOD Squamous (<= Few)
[2020-02-06 16:26] LABS: TRICHOMONAS VAGINALIS DNA NEGATIVE (NEGATIVE)
== END 2020-02-06 23:59 | disposition home or self-care (01) ==
LOC: LAB.R 08:00
PROVIDERS: ATTEND Nurse Practitioner Obstetrics & Gynecology
DX: Z36.89 Encounter for other specified antenatal screening (principal); Z11.3 Encounter for screening for infections with a predominantly sexual mode of transmission
CPT/HCPCS: 81001; 87086; 87491; 87591; 87661

== ENCOUNTER 2020-03-06 08:42 | Outpatient (CLI) | payer MEDICAID ==
[2020-03-06 09:31] LABS: BASOPHILS % (AUTO) 0.1 %; EOSINOPHILS # (AUTO) 0.1 10^3/uL (0.0-0.7); EOSINOPHILS % (AUTO) 1.8 %; HGB - HEMOGLOBIN 14.4 g/dL (12.0-16.0); LYMPHOCYTES # (AUTO) 1.4 10^3/uL (1.5-3.5); LYMPHOCYTES % (AUTO) 19.4 %; MEAN CORPUSCULAR HEMOGLOBIN 30.5 pg (27.0-31.0); MEAN CORPUSCULAR VOLUME 92.4 fL (81.0-99.0); MEAN PLATELET VOLUME 8.8 fL (7.9-10.8); MONOCYTES # (AUTO) 0.4 10^3/uL (0.0-1.0); MONOCYTES % (AUTO) 5.2 %; NEUTROPHILS # (AUTO) 5.2 10^3/uL (1.5-6.6); NEUTROPHILS % (AUTO) 73.1 %; PLT - PLATELET COUNT 247 10^3/uL (130-450); RED BLOOD COUNT 4.72 10^6/uL (4.20-5.40); RED CELL DISTRIBUTION WIDTH 13.3 % (12.0-15.0); WHITE BLOOD COUNT 7.2 x10^3/uL (4.8-10.8)
[2020-03-06 10:00] LABS: FERRITIN 14.4 ng/mL (11.0-306.8)
[2020-03-07 07:06] LABS: HIV AG/AB 4TH GEN NON-REACTIVE (NON-REACTIVE)
[2020-03-07 15:05] LABS: HEPATITIS B SURFACE ANTIGEN NON-REACTIVE (NON-REACTIVE)
[2020-03-07 15:06] LABS: HEPATITIS C ANTIBODY NON-REACTIVE (NON-REACTIVE)
== END 2020-03-06 08:43 | disposition home or self-care (01) ==
LOC: LAB 08:42
PROVIDERS: ATTEND Nurse Practitioner Obstetrics & Gynecology
DX: Z34.90 Encounter for supervision of normal pregnancy, unspecified, unspecified trimester (principal); Z36.89 Encounter for other specified antenatal screening
CPT/HCPCS: 36415; 81599; 82728; 83540; 84443; 85025; 86592; 86762; 86803; 86850; 86900; 86901; 87340; 87389

== ENCOUNTER 2020-04-21 07:57 | Outpatient (CLI) | payer MEDICAID ==
--- NOTE | 2020-04-21 09:59 | Ultrasound Report ---
PROCEDURE: OB Detailed Eval INDICATIONS: SUPERVISION OF OUTSIDE/PRIOR DATING DATA: Last menstrual period (LMP): 11/22/2019. LMP-based estimated date of delivery (MICHELLE): 08/28/2020. First dating scan (date and location): 01/30/2020. Estimated date of delivery (MICHELLE) from first dating scan: 08/29/2020. TECHNIQUE: Real-time scanning was performed of the fetus, with image documentation and biometric measurements. COMPARISON: OB ultrasound 01/30/2020 FINDINGS: General: A single living intrauterine gestation is present. Presentation: Breech Placenta: Placental position is posterior, without previa. Amniotic fluid index: 14.7 cm cm, 53rd percentile for gestational age. Largest pocket measures 4.6 cm. heart rate: 165 beats per minute. Maternal cervical canal: 4.4 cm long; normal length is 2.5 cm or more. biometrics: Biparietal diameter: 5.52 cm 22 weeks 6 days Head circumference: 20.32 cm 22 weeks 3 days Abdominal circumference: 16.68 cm 21 weeks 5 days Femur length: 3.54 cm 21 weeks 1 day Estimated gestational age from initial scan: 21 weeks 3 days Composite gestational age from present scan: 22 weeks 0 days Estimated weight and percentile: 438 g, 55th percentile Measurement variability in biometric dating: +/- 10 days from 12-20 weeks gestation, +/- 2 weeks from 20-30 weeks gestation, +/- 3 weeks at 30 weeks gestation or later. Anatomic survey: Neuro: Ventricles are normal at less than 10 mm. Cisterna magna is normal at 3-11 mm. Cerebellum i s normal in size and morphology. Nuchal skin fold: Normal at less than 6 mm between 14 and 20 weeks gestational age. Face: Nose and lips, facial profile are normal. Spine: No evidence for spina bifida. Heart: 4-chambered heart is present, with normal ventricular outflow tracts. Echogenic focus is pre sent within the left ventricle. Diaphragm: Diaphragm is intact. Stomach: Left-sided stomach is present. Kidneys: No hydronephrosis. Normal is less than 5 mm in 2nd trimester, less than 7 mm in 3rd trimester. Cord: 3 vessel cord has orthotopic insertion. Bladder: Normal in size. Extremities: All 4 extremities are visualized. IMPRESSION: 1. Single live intrauterine with ultrasound gestational age today of 22 weeks 0 days compar ed to 21 weeks 3 days from initial ultrasound. Ultrasound MICHELLE is unchanged at 08/29/2020. 2. Echogenic focus is present within the left ventricle. This is overall nonspecific. Recommend inter melina follow-up as well as correlation to genetic testing as clinically appropriate. Otherwise, anatomy is within normal limits. Reviewed by: Apryl Frausto MD on 04/21/2020 9:58 AM PST Approved by: Apryl Frausto MD on 04/21/2020 9:58 AM PST Station ID: [id number]
== END 2020-04-21 07:58 | disposition home or self-care (01) ==
LOC: DI 07:57
PROVIDERS: ATTEND Advanced Practice Midwife
DX: Z36.89 Encounter for other specified antenatal screening (principal); O28.4 Abnormal radiological finding on antenatal screening of mother; Z3A.22 22 weeks gestation of pregnancy
CPT/HCPCS: 76811

== ENCOUNTER 2020-06-09 09:54 | Outpatient (CLI) | payer MEDICAID ==
[2020-06-09 11:10] LABS: HGB - HEMOGLOBIN 13.8 g/dL (12.0-16.0); MEAN CORPUSCULAR HEMOGLOBIN 30.9 pg (27.0-31.0); MEAN CORPUSCULAR HGB CONC 33.3 g/dL (32.0-36.0); MEAN CORPUSCULAR VOLUME 92.8 fL (81.0-99.0); MEAN PLATELET VOLUME 8.5 fL (7.9-10.8); RED BLOOD COUNT 4.47 10^6/uL (4.20-5.40); RED CELL DISTRIBUTION WIDTH 13.4 % (12.0-15.0); WHITE BLOOD COUNT 8.9 x10^3/uL (4.8-10.8)
== END 2020-06-09 09:55 | disposition home or self-care (01) ==
LOC: LAB 09:54
PROVIDERS: ATTEND Nurse Practitioner Obstetrics & Gynecology
DX: Z36.89 Encounter for other specified antenatal screening (principal)
CPT/HCPCS: 36415; 82950; 85027

== ENCOUNTER 2020-07-24 19:20 | Outpatient (CLI) | payer MEDICAID ==
[2020-07-24 19:54] VITALS: BP 111/68
[2020-07-24 20:25] LABS: BILIRUBIN,URINE NEGATIVE (NEGATIVE); GLUCOSE, URINE (UA) NEGATIVE (NEGATIVE); KETONES,URINE (UA) NEGATIVE (NEGATIVE); LEUKOCYTE ESTERASE, URINE NEGATIVE (NEGATIVE); NITRITE,URINE NEGATIVE (NEGATIVE); OCCULT BLOOD,URINE NEGATIVE (NEGATIVE); PROTEIN,URINE NEGATIVE (NEGATIVE); UROBILINOGEN,URINE 0.2 (NORMAL) E.U./dL (NORMAL)
[2020-07-24 20:30] LABS: BACTERIA,URINE None Seen /HPF (None Seen); CLARITY,URINE CLEAR (CLEAR); RBC,URINE 0-5 /HPF (0-5); SQUAMOUS EPITHELIAL CELL,UR RARE Squamous (<= Few); WBC,URINE 0-3 /HPF (0-5)
--- NOTE | 2020-07-24 21:59 | PROVIDER PROGRESS NOTE ---
- HPI Chief Complaint: Labor Current : Current EDU 08/28/20 Gestation 35 Weeks and 0 Days 3 Para 2 Vital Signs Temperature 36.9 C 07/24/20 19:36 Heart Rate 73 07/24/20 19:36 Respiratory Rate 20 07/24/20 19:36 Blood Pressure 111/68 07/24/20 19:36 O2 Saturation 98 07/24/20 19:36 Temperature 36.9 C 07/24/20 19:36 Heart Rate 73 07/24/20 19:36 Respiratory Rate 20 07/24/20 19:36 Blood Pressure 111/68 07/24/20 19:36 O2 Saturation 98 07/24/20 19:36 - Procedures OB Procedure Performed: NST Diagnosis/Indication for NST: labor NST Procedure: NST Procedure Start Date 07/24/20 Start Time 19:30 Stop Time 20:24 Vibroacoustic Stimulation Used No Patient States Movement Yes - Plan Plan: Shaun Rodriguez, who goes by her middle name "Real", presents to triage this evening after phone screening for rule out labor. She reports she began having contractions that felt stronger than [place] approximately 2.5 hours prior to calling in at 1950. They come every couple of minutes. Some are mild, and some are stronger. She can talk through them. She denies any LOF or VB, and reports good movement. She reports that with her second she had "weeks of labor" and then delivered two days before her due date. She also reports that last week at night she had an episode of very strong contractions, stronger than tonight by far, that lasted about an hour and then resolved. O: UA- wnl GC/CT- collected GBS- collected Vag Pathogens- collected SVE at 2009 1.5/70%/-2/soft/mid- per RN Contractions- q2-10mins, Mild, Rated at 2/10 on pain scale FHT-135, moderate variability, accels 15x15, no decels History G1: 2016 40wks G2: 2018 39.5wks Precipitous G3: current A: Real is a 29yo at 35.0wks gestation who presents to L&D for rule out labor FHT- Cat I Uterine activity- mild P: Recheck SVE two hours after previous check
--- NOTE | 2020-07-24 22:23 | PROVIDER PROGRESS NOTE ---
Subjective - Subjective Pt reports feeling: Improved Subjective: SVe at 2 hours: no cervical change Plan: Discharge home with labor precautions Will notify patient of any abnormal lab results Continue with routine care Nst perform date: 07/24/2020 NST read date: 07/24/2020 Interpretation: Reassuring Start time: 1929 End time: 2215 Final Diagnosis: False labor before 37 weeks gestation Objective - Vital Signs/Intake & Output Vital Signs: Vital Signs x48h Temp Pulse Resp BP Pulse Ox 07/24/20 19:36 36.9 C 73 20 111/68 98 - Lab Results Other Labs: Lab Results x24hrs 07/24/20 Range/Units 20:03 Urine Color YELLOW Urine Clarity CLEAR (CLEAR) Urine pH 8.0 H (5.0-7.5) PH Ur Specific [place] 1.015 (1.002-1.030) Urine Protein NEGATIVE (NEGATIVE) mg/dL Urine Glucose (UA) NEGATIVE (NEGATIVE) mg/dL Urine Ketones NEGATIVE (NEGATIVE) mg/dL Urine Occult Blood NEGATIVE (NEGATIVE) Urine Nitrite NEGATIVE (NEGATIVE) Urine Bilirubin NEGATIVE (NEGATIVE) Urine Urobilinogen 0.2 (NORMAL) (NORMAL) E.U./dL Ur Leukocyte Esterase NEGATIVE (NEGATIVE) Urine RBC 0-5 (0-5) /HPF Urine WBC 0-3 (0-5) /HPF Ur Squamous Epith Cells RARE Squamous (<= Few) Urine Bacteria None Seen (None Seen) /HPF Urine Culture Comments NOT INDICATED
[2020-07-25 00:52] LABS: CHLAMYDIA TRACHOMATIS DNA NEGATIVE (NEGATIVE); NEISSERIA GONORRHOEAE DNA NEGATIVE (NEGATIVE); TRICHOMONAS VAGINALIS DNA NEGATIVE (NEGATIVE)
[2020-07-25 01:49] LABS: BACTERIAL VAGINOSIS DNA UNRESOLVED (NEGATIVE)
[2020-07-25 01:50] LABS: CANDIDA GLABRATA DNA UNRESOLVED (NEGATIVE); CANDIDA GROUP DNA UNRESOLVED (NEGATIVE); CANDIDA KRUSEI DNA UNRESOLVED (NEGATIVE); TRICHOMONAS VAGINALIS DNA UNRESOLVED (NEGATIVE)
== END 2020-07-24 22:25 | disposition home or self-care (01) ==
LOC: WFO 19:20 → FBP 19:21 → WFO 22:25
PROVIDERS: ATTEND Advanced Practice Midwife
DX: O47.03 False labor before 37 completed weeks of gestation, third trimester (principal); Z3A.35 35 weeks gestation of pregnancy
CPT/HCPCS: 59025; 81001; 87086; 87491; 87591; 87661; 87797; 87801; 99213

== ENCOUNTER 2020-08-26 07:33 | Inpatient (IN) | payer MEDICAID ==
--- NOTE | 2020-08-26 04:24 | HISTORY & PHYSICAL EXAMINATION ---
Admit History - Visit Reason Visit Reason: Other - : 3 Parity: 2 Premature: 0 Ectopic: 0 Care: positive: [facility] Risk/History: positive: None Complications This : positive: None Smoking Status: Never smoker - Mother's Labs Mother's Blood Type: positive: A Mother's RH: positive: Positive GBS: positive: Group B Step Negative Rubella Status: positive: Immune Meds/Allgy - Home Medications Home Medications: Ambulatory Orders Medication Instructions Recorded Confirmed No Known Home Medications 09/22/16 09/22/16 - Allergies Allergies/Adverse Reactions: Allergies Allergy/AdvReac Type Severity Reaction Status Date / Time No Known Drug Allergies Allergy Verified 09/22/16 10:27 Review of Systems - Constitutional Constitutional: denies: Fatigue, Fever, Chills, Malaise - Eyes Eyes: denies: Blurred vision, Spots in vision, Dipolpia - Cardiovascular Cariovascular: denies: Irregular heart rate, Chest pain, Edema - Respiratory Respiratory: denies: Cough, Wheezing, SOB at rest - Gastrointestinal Gastrointestinal: denies: Change in bowel habits - Integumentary Integumentary: denies: Rash, Pruritis - Neurological Neurological: denies: Headache Physical - Abdominal Exam Contraction Frequency (min/apart): irregular Contraction Intensity: positive: Mild Uterine Resting Tone: positive: Soft - Monitoring Heart Rate Baseline: 130 Strip Review: positive: Category I - Presentation Presentation: positive: Vertex - Vaginal Exam Membranes: positive: Membranes intact Dilation (in cm): 4 Effacement (%): 50 Station: positive: -2 Cervical Position: positive: Midposition - Speculum Exam Speculum Exam Performed: positive: No Findings: positive: Other Plan for Labor - Plan For Labor I expect patient to be DC'd or transferred within 96 hours.: Yes Plan for Labor: HPI: Jennifer Velasco (Morgan) is a 29 yo @ 39.5wks gestation by LMP c/w 9.6wk U/S who presents to [facility] for elective induction of labor. She reports feeling contractions intermittently however they are not overly painful rather she just notes they are happening. She denies vaginal bleeding or leakage of fluid. She reports +FM. She has a hx of precipitous deliveries. She has been a patient of [facility] through the duration of her which has remained uncomplicated. Of note she did have an MFM consultation in the first trimester secondary to concern or undiagnosed connective tissue disorder. MFM recommendation was to continue with routine care. She presents today with her Yobany. Dating criteria: LMP 11/21/2020 Initial US @ 9.6wk c/w LMP dating Serial exams - agree OB Hx: G1: 08/12/2016; , 40wk, [facility], unmedicated, Female G2: 07/25/2018; , 39.5wk, [facility], unmedicated, precipitous, male G3: Current Medications: PNV; Zyrtec allergy PRN Allergies: NKDA PMHx: None Surgical Hx: Tonsillectomy (1998); Panendoscopy (2018) - tortuous colon and gastritis Social Hx: Never smoker. No ETOH or IVDA. Yobany. 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 Family Hx: Lung cancer - MGF (smoker); cleft palate - father; skin cancer - MGM course: Initial US: at 9.6wks c/w LMP for MICHELLE of 08/28/2020 MFM consult secondary to possible undiagnosed connective tissue disorder- recommendation to proceed with normal care. A pos/Rubella immune Genetic testing: with MFM FAS 04/21/2020 WNL. Posterior placenta, no previa. 3VC. Size c/w dating. Left echogenic foci - pt has had genetic testing with MFM and was entirely WNL. Glucola ordered flu 05/27/2020 TDAP- 06/09/2020 GBS at 35.0wks - neg HSV: denies Breast pump Rx provided MOD: Anticipate ; desires unmedicated delivery, considering elective IOL @ 40.0wks; daughter Gage, son Eric; SURPRISE gender pp contraception: natural family planning pap: 12/20/2017-wnl Physical Exam: Normocephalic, atraumatic Heart RRR w/o M/G/R Lungs CTAB Abdomen gravid, soft, nontender EFW 3600g SVE 4/50/-2. AROM moderate amount of clear fluid. FHR baseline 130, moderate variability, + accels, no decels Contractions irregular. Pt appreciates the contractions as present but denies associated pain. Bilateral LE's no edema Mood is good. Assessment: 29yo @ 39.5wks gestation by LMP c/w 9.6wk U/S Elective IOL FHR Category I GBS neg Plan: Admit for elective IOL. AROM - expectant management Intermittent monitoring Encouraged ambulation and position changes Jacuzzi PRN. Nitrous oxide PRN. Anticipate .
[~2020-08-26 07:33] MED LIST: CARBOPROST TROMETHAMINE 250 MCG/ML AMP IM PRN; LACTATED RINGERS 1,000 ML IV SCH; LIDOCAINE-MPF 1% 30 ML VIAL ID PRN; METHYLERGONOVINE 0.2 MG/ML VIAL IM PRN; OXYTOCIN 10 UNIT/ML VIAL IM PRN; OXYTOCIN/SODIUM CHLORIDE 500 ML IV PRN; SODIUM CHLORIDE FLUSH 0.9% 10 ML SYRINGE IVP PRN; SODIUM CHLORIDE FLUSH 0.9% 10 ML SYRINGE IVP SCH; TRANEXAMIC ACID IN NACL 1,000 MG/100 ML BAG IV PRN; miSOPROStoL 200 MCG TABLET BC PRN
[2020-08-26 08:17] LABS: BASOPHILS % (AUTO) 0.2 %; EOSINOPHILS # (AUTO) 0.2 10^3/uL (0.0-0.7); HCT - HEMATOCRIT 41.6 % (37.0-47.0); HGB - HEMOGLOBIN 13.7 g/dL (12.0-16.0); LYMPHOCYTES # (AUTO) 1.6 10^3/uL (1.5-3.5); LYMPHOCYTES % (AUTO) 19.4 %; MEAN CORPUSCULAR HEMOGLOBIN 30.5 pg (27.0-31.0); MEAN CORPUSCULAR HGB CONC 32.9 g/dL (32.0-36.0); MEAN CORPUSCULAR VOLUME 92.7 fL (81.0-99.0); MEAN PLATELET VOLUME 9.2 fL (7.9-10.8); MONOCYTES # (AUTO) 0.5 10^3/uL (0.0-1.0); MONOCYTES % (AUTO) 6.4 %; NEUTROPHILS # (AUTO) 5.7 10^3/uL (1.5-6.6); NEUTROPHILS % (AUTO) 70.6 %; PLT - PLATELET COUNT 235 10^3/uL (130-450); RED BLOOD COUNT 4.49 10^6/uL (4.20-5.40); RED CELL DISTRIBUTION WIDTH 13.9 % (12.0-15.0)
--- NOTE | 2020-08-26 14:09 | PROVIDER PROGRESS NOTE ---
Labor Progress Note - Uterine Monitoring Contraction Frequency (min/apart): 4-6 Contraction Intensity: positive: Moderate to strong Uterine Resting Tone: positive: Soft - Monitoring Heart Rate Baseline: 135 Heart Rate Variability: positive: Moderate (6-25 bmp) Accelerations: positive: Present, 15x15 Decelerations: positive: None Strip Review: positive: Category I - Labor Progress Note Labor Progress Note/Additional Text: S: Feeling increased pressure and intensity of contractions. Requesting CNM presence at the bedside. O: (see above) A: 29yo @ 39.5wks gestation FHR Category I P: Continue expectant management.
[2020-08-26] MEDS ORDERED: HYDROCORTISONE 1% CREAM 28 GM TUBE PR PRN (14:12)
[2020-08-26] MEDS ORDERED: WITCH HAZEL/GLYCERIN 1 PAD TOP PRN (14:12)
--- NOTE | 2020-08-26 14:21 | DELIVERY NOTE ---
Delivery Note - Labor Labor: positive: Induced by ARM - Infant Delivery Method Delivery Method: positive: Spontaneous vaginal delivery - Presentation Presentation: positive: Vertex, CARLOS - left occiput anterior - Nuchal Cord Nuchal Cord: positive: Present, Reduced - Amniotic Fluid Description Amniotic Fluid Description: positive: Clear - Episiotomy Type Episiotomy Type: positive: None - Laceration Laceration: positive: 1st degree, Perineal - Suture Suture Type: positive: Vicryl Suture Size: positive: 3-0 - Delivery Outcome Delivery Outcome: positive: Livebirth - [place] : positive: Placed in direct skin contact with mother, Stimulated, Warmed, [place] used sex: positive: Male - Cord Cord: positive: 3 vessels - Placenta Placenta: positive: Intact, Spontaneous - Estimated Blood Loss Estimated Blood Loss (in cc): 200 - Post Delivery Events Post Delivery Events: positive: No post delivery events - Delivery Comments (Free Text/Narrative) Delivery Comments (Free Text/Narrative): Labor: This 29yo @ 39.5wks gestation by LMP presented on 08/26/2020 at 0730 for elective induction of labor secondary to her history of precipitous deliveries. Cervix was 4/90/-2, vertex. FHR pattern category I. AROM moderate amount of clear fluid at 0839. Precipitous labor course. Patient progressed to c/c/+1 at 1320. : Normal of viable male on 08/26/2020 @ 1330. Nuchal cord x 1 easily reduced.The was placed on maternal abdomen, stimulated, dried, and placed skin to skin. Apgars 8/9 at 1 and 5 min respectively. Pitocin administered via IV for hemostasis. The umbilical cord was allowed to stop pulsating at which time it was doubly clamped and cut by CNM. 3VC. Fundal massage and gentle cord traction applied for active management of the third stage. Placenta delivered spontaneously and intact at 1339. EBL 200mL. Fourth stage: Uterine fundus firm and there is no excessive bleeding. The perineum, vagina, and cervix were inspected and found to have 1st degree perineal laceration which was repaired using a 3-[address]-1 needle, in standard fashion and under sterile conditions. Vaginal examination following repair was completed. Tissues well approximated. initiated. Family bonding well. Both mother and baby were left in stable condition.
[2020-08-26] MEDS: ACETAMINOPHEN 500 MG TABLET PO SCH ×2 (14:56→23:03)
[2020-08-26] MEDS: IBUPROFEN 800 MG TABLET PO SCH ×2 (14:56→21:10)
[2020-08-26] MEDS: DOCUSATE SODIUM 100 MG CAPSULE PO SCH (21:10)
[2020-08-27] MEDS: IBUPROFEN 800 MG TABLET PO SCH ×2 (03:02→08:50)
[2020-08-27] MEDS: ACETAMINOPHEN 500 MG TABLET PO SCH (07:14)
[2020-08-27] MEDS: DOCUSATE SODIUM 100 MG CAPSULE PO SCH (08:50)
[2020-08-27 09:28] VITALS: BP 114/65
--- NOTE | 2020-08-27 11:38 | PROVIDER PROGRESS NOTE ---
Subjective - Subjective Subjective: FINAL PROGRESS NOTE: S: Bonding well with baby. without difficulty although did speak with the rvda master certified rv technician about some nipple tenderness that seems slightly more than with her previous babies. Per pt rvda master certified rv technician noted a possible lip tie but will monitor and refer for revision as needed. Pt feeling confident and desires to be discharged home. Bleeding decreased and is light. Pain well controlled with oral medications. Mood is good. She is feeling very pleased with her . O: BP 114/65, T 36.7, HR 95, RR 16 Heart RRR w/o M/G/R, lungs CTAB, abdomen soft and nontender, fundus firm at U-1, Perineum intact, light lochia rubra, bilateral LE's no edema. A: 29yo -->P3 PPD#1 s/p TSVD of viable male infant 1st degree perineal laceration - intact P: Reviewed pp self care and warning s/sx and when to present. Pt has emergency contact number. Encouraged continuation of ibuprofen and tylenol PRN pain management. Continue vitamin while . F/u in 1 week with myself at [facility] or sooner PRN. Pt verbalized understanding and agrees to above plan. She denies further questions or concerns at this time. Objective - Vital Signs/Intake & Output Vital Signs: Vital Signs x48h Temp Pulse Resp BP Pulse Ox 08/27/20 09:10 36.7 C 95 16 114/65 98 08/27/20 04:45 36.7 C 80 18 102/58 L 99 Intake & Output: Intake & Output 08/24/20 08/25/20 08/26/20 08/27/20 23:59 23:59 23:59 23:59 Intake Total 900 500 Output Total 600 Balance 300 500 - Lab Results Fish Bones: 08/26/20 08:05 Other Labs: Lab Results x24hrs 08/26/20 Range/Units 09:50 Coronavirus (PCR) NEGATIVE
--- NOTE | 2020-08-27 11:39 | Discharge Plan ---
Discharge Plan Problem Reviewed?: Yes Disposition: Home, Self Care Condition: Good Diet: Regular Activity Restrictions: No Restrictions Shower Restrictions: No Driving Restrictions: No Weight Bearing: Full Weight No Smoking: If you smoke, Please STOP! Call for help. Follow-up with: Courtney Saucedo CNM, ARNP [Provider Admit Priv/Credential] -
--- NOTE | 2020-08-27 12:04 | DISCHARGE SUMMARY ---
Physician: UYEN Washington DATE OF ADMISSION: 08/26/2020 DATE OF DISCHARGE: 08/27/2020 DIAGNOSES ON ADMISSION 1. A 29-year-old G3, P2-0-0-2 at 39.5 weeks' gestation. 2. Elective induction of labor. 3. Group B Streptococcus negative. DIAGNOSES ON DISCHARGE 1. A 29-year-old G3, P3-0-0-3, status post spontaneous vaginal delivery on 08/26/2020. 2. . 3. Normal recovery. BRIEF HISTORY: She is a patient of [facility] who presented on 08/26/2020 for elective induction of labor secondary to her history of precipitous deliveries. The patient's cervix was noted to be 4 cm dilated, 50% effaced, -2 station. Artificial rupture of membranes occurred for induction of labor and was noted to be a moderate amount of clear fluid. Patient was managed expectantly and progressed to deliver a viable male infant on 08/26/2020 at 1330. Nuchal cord x1 easily reduced. Apgars were 8 and 9 at one and five minutes respectively. EBL 200 mL. The perineum, vagina, and cervix were inspected and found to have a first-degree perineal laceration, which was repaired in standard fashion and under sterile conditions. She has been doing well in her course. She is ambulating and tolerating a regular diet. She is urinating without difficulty, and her lochia is normal. Her pain is well-controlled with oral medications. She will be discharged home today on day #1 with instructions to continue taking her vitamin while and to continue taking ibuprofen and Tylenol [id number] as needed for pain management. She intends to follow up with myself at [facility] in 1 week for routine visit or sooner if needed. She has been given precautions to call if she has any worsening fevers, chills, abdominal pain, increased bleeding, or foul- smelling vaginal lochia. TD: 08/27/2020 11:44 malika WARD
== END 2020-08-27 14:45 | disposition home or self-care (01) | DRG 807 ==
LOC: WFO 07:33 → FBP 07:36 → WFO 07:37 → FBP 07:47
PROVIDERS: ADMIT Nurse Practitioner Obstetrics & Gynecology; ATTEND Nurse Practitioner Obstetrics & Gynecology
PROC: 10907ZC Drainage of Amniotic Fluid, Therapeutic from Products of Conception, Via Natural or Artificial Opening (ICD-10-PCS; principal; 2020-08-26)
PROC: 10E0XZZ Delivery of Products of Conception, External Approach (ICD-10-PCS; 2020-08-26)
PROC: 0HQ9XZZ Repair Perineum Skin, External Approach (ICD-10-PCS; 2020-08-26)
DX: O70.0 First degree perineal laceration during delivery (principal); Z37.0 Single live birth; O69.81X0 Labor and delivery complicated by cord around neck, without compression, not applicable or unspecified; Z3A.39 39 weeks gestation of pregnancy
CPT/HCPCS: 85025; 86850; 86900; 86901; 87635; A9270; J7120